=== PATIENT | female | born 1985 | race Caucasian/White ===

== ENCOUNTER 2018-03-27 05:33 | Inpatient (IN) | payer MEDICAID ==
[~2018-03-27] VITALS: Ht 168.9 cm; Wt 85.3 kg
[~2018-03-27 05:33] MED LIST: ACE3 PO; ACET-1718 PO; IBU600 PO; IBUP800T37 PO; IRO150 PO; PNV1TABL92 PO
[2018-03-27] MEDS ORDERED: FAMOTIDINE(*) 20MG/50ML PREMIX 50 ML IVPB PRN (05:34)
[2018-03-27] MEDS ORDERED: fentaNYL CITR 100 MCG/2 ML AMP IVP PRN (05:35)
[2018-03-27] MEDS ORDERED: LIDOCAINE/SOD BICARB 8.4% SYR SC PRN (05:35)
[2018-03-27] MEDS ORDERED: METOCLOPRAMIDE 10 MG/2 ML SDV IVP PRN (05:35)
[2018-03-27] MEDS ORDERED: FLUSH 10 ML SYR IVP PRN (05:35)
[2018-03-27] MEDS ORDERED: LIDOCAINE 1% LOCAL 300 MG/30ML INJ PRN ×2 (05:35→14:10)
[2018-03-27] MEDS ORDERED: cefOXitin/DEX(*) 2GM/50ML PREM 50 ML IVPB PRN (05:35)
[2018-03-27] MEDS ORDERED: TERBUTALINE SULF 1 MG/ML VIAL SUBQ PRN (05:35)
[2018-03-27] MEDS: OXYTOCIN 30 UNIT/LR 500 ML 500 ML IV PRN ×2 (06:17→07:45)
[2018-03-27] MEDS: LR(*) 1000 ML BAG 1,000 ML IV PRN ×2 (06:18→11:03)
[2018-03-27] MEDS ORDERED: CALC-515 PO (06:20)
[2018-03-27] MEDS ORDERED: ACET-1966 PO (06:20)
[2018-03-27 06:44] LABS: PLATELET COUNT, AUTOMATED 217 K/uL (150-450)
[2018-03-27 07:05] VITALS: BP 116/75; Ht 168.9 cm; Wt 85.3 kg
[2018-03-27] MEDS ORDERED: BUPIVACAINE 0.25% MPF INJ EPI PRN (07:55)
[2018-03-27] MEDS ORDERED: fentaNYL CITR 100 MCG/2 ML AMP IT PRN (07:55)
[2018-03-27] MEDS ORDERED: FENTANYL/ROPIVACAINE 100 ML BAG EPI PRN (07:55)
[2018-03-27] MEDS ORDERED: LIDOCAINE/PF 2% 200MG/10ML AMP 200 MG/10 ML AMPUL EPI PRN (07:55)
[2018-03-27] MEDS ORDERED: BUPIVACAINE 0.5% INJ 30ML VIAL EPI PRN (07:55)
[2018-03-27] MEDS ORDERED: LIDO/EPI 2% MPF 1:200,000 20ML EPI PRN (07:55)
[2018-03-27] MEDS ORDERED: EPIDURAL KEYS XX PRN (07:55)
[2018-03-27] MEDS ORDERED: NS 0.9% 20 ML SDV 20 ML ONE (11:22)
--- NOTE | 2018-03-27 12:24 | Anesthesia OB Pre-Anes Eval ---
History of Present Illness Anesthesia Start Date: Mar 27, 2018 Anesthesia Start Time: 09:42 OB Anesthesia Diagnosis: induction - elective EDC: Apr 01, 2018 : 4 Para: 3 Pain Ratin Heart Tones: 146 Result Diagram: 03/27/18 0630 Height (Inches): 66.50 Weight (Pounds): 188 BMI Calculated: 29.89 Past Medical History Medical History: no pertinent history Previous Anesthesia: epidural (epidural X 2) Attended Childbirth Classes?: Yes Hx Anesthesia Reactions: No Hx Family Anesthesia Reaction: No Current Medications: pitocin Home Meds Reported Medications Acetaminophen (TYLENOL) 325 Mg Tablet, 325 MG PO, TAB 03/27/18 Calcium Carbonate (TUMS) 200 Mg Tab.chew, 200 MG PO, TAB.CHEW 03/27/18 Pnv Cmb#95/Ferrous Fumarate/Fa ( TABLET) 1 Each Tablet, 1 EACH PO DAILY CONTINUE VITAMIN WHILE . 06/09/12 Discontinued Scripts Ibuprofen (IBUPROFEN) 800 Mg Tablet, 1 TAB PO Q8H, #30 TAB Prov:SAMUEL PARHAM MD 10/06/14 Acetaminophen With Codeine # 3 (ACETAMINOPHEN-COD #3 TABLET) 1 Each Tablet, 1-2 EACH PO Q4H Y for PAIN, #30 TAB Prov:SAMUEL PARHAM MD 10/06/14 Allergies: Coded Allergies: No Known Drug Allergies (Verified , 10/21/10) Anesthesia OB ROS Airway Class: ll GI ROS: clear liquids Last Solids Date: Mar 27, 2018 Last Solids Time: 09:00 ASA Classification: 2 EVANGELIST TYSON CRNA Mar 27, 2018 12:24
[2018-03-27] MEDS ORDERED: BENZOCAINE 20% 60 ML BTL TP PRN (12:30)
[2018-03-27] MEDS ORDERED: GLYCERIN/WITCH HAZEL LEAF 1 PK TP PRN (12:30)
[2018-03-27] MEDS ORDERED: ACETAMINOPHEN 325 MG TAB PO PRN (12:30)
[2018-03-27] MEDS ORDERED: LANOLIN OINT 7 GM TUBE TP PRN (12:30)
[2018-03-27] MEDS ORDERED: HYDROCORTISONE 2.5% CR 30GM TB PR PRN (12:30)
[2018-03-27] MEDS ORDERED: INFLUENZA VIRUS VAC 0.5 ML SYR IM ONLY ONE (12:30)
[2018-03-27] MEDS ORDERED: MAGNESIUM HYDROXIDE* 30ML UDCP PO PRN (12:30)
--- NOTE | 2018-03-27 12:34 | Procedure Note ---
Anesthetic Placement Note Anesthesia Plan: CSE Permit for Anesthesia Signed: Yes Anesthesia Technique: Patient Sitting Anesthesia Prep: Chlorhexidine Interspace: L 4-5 Local Anesthetic: 1% Lidocaine, 25 Gauge Needle Amount Local - cc's: 3 Anesthesia Needle: 17g Touhy/Schliff Anesthesia Attempts: 1 Loss of Resistance: Normal Saline Depth of FORD (cm): 4 Intrathecal Needle: 27 Gauge Pencan Cerebral Spinal Fluid: No Catheter Insertion (cm): 8 Catheter Type: Verdin - Spring Wound Epidural Dressing: Tegaderm, Tape Anesthesia Tray: Lot Number [id number]), Expiration Date (2019-04-07), Reference Number ([id number]) Anesthesia Medications: Intrathecal Dose: mcg Fentanyl (10), mg Marcaine MPF (2.5), mg Astromorph (0.4) , Time (0958) Epidural Test Dose: 1.5 Lido/Epi (1:200,000), Dose - mL (3), Time (1002), Negative Epidural Loading Dose: 0.25% Marcaine, With Fentanyl 2mcg/ml, Dose - ml (5), Time (1006), Other (90 mcg fentanyl with loading dose) Epidural Infusion: 0.2% Ropivicaine, With Fentanyl 2mcg/ml, Start Time: (1014) Epidural Pump Setting: Bolus Dose - mL (6), Lockout - Minutes (20), Maintenance Rate - mL/hr (12), Maximum per Hour - mL (30) Comment: intrathecal dose not effective. patient did not have relief from contractions and felt no difference in legs when testing sensory level with alcohol wipe. patient eventually felt some tingling in legs and contractions moved from being felt in whole belly area to lower abdomen only. EVANGELIST TYSON CRNA Mar 27, 2018 12:34
--- NOTE | 2018-03-27 12:36 | Anesthesia Progress Note ---
Progress/Maintenance Anesthesia Note Time: 10:45 Pain Intensity: 5 Pump: On Pump Rate (ML/HR): 12 Motor Level: Bending Knees-Bilateral Dilatation: 8 Position: Right, Tilt Drug Bolus: 0.25% Marcaine (5 ml) Anesthesia Treatment: patient not feeling relief from epidural. bolus dose given via epidural EVANGELIST TYSON CRNA Mar 27, 2018 12:36
--- NOTE | 2018-03-27 12:38 | Anesthesia Progress Note ---
Progress/Maintenance Anesthesia Note Time: 11:15 Pain Intensity: 6 Pump Rate (ML/HR): 12 Motor Level: Bending Knees-Bilateral Position: Right, Tilt Drug Bolus: 0.25% Marcaine Anesthesia Treatment: bolus given due to patient comfort level. EVANGELIST TYSON [employer] Mar 27, 2018 12:38
--- NOTE | 2018-03-27 12:39 | Anesthesia Progress Note ---
Progress/Maintenance Anesthesia Note Time: 11:45 Pain Intensity: 8 Pump: On Pump Rate (ML/HR): 12 Motor Level: Bending Knees-Bilateral Dilatation: 8 Position: Right, Lateral Drug Bolus: 0.25% Marcaine Anesthesia Treatment: bolus dose given EVANGELIST TYSON CRNA Mar 27, 2018 12:39
--- NOTE | 2018-03-27 12:41 | Anesthesia Progress Note ---
Progress/Maintenance Anesthesia Note Time: 11:50 Pain Intensity: 8 Pump: Off Motor Level: Bending Knees-Bilateral Dilatation: 8 Position: Right, Tilt Anesthesia Treatment: epidural removed due to no relief from boluses. EVANGELIST TYSON CRNA Mar 27, 2018 12:40
--- NOTE | 2018-03-27 12:42 | Anesthesia Progress Note ---
Progress/Maintenance Anesthesia Note Time: 11:55 Pain Intensity: 8 Pump: Off Motor Level: Bending Knees-Bilateral Dilatation: 8 Anesthesia Treatment: attempted 2nd epidural pt. C and P. no catheter placed. EVANGELIST TYSON BRAINER Mar 27, 2018 12:42
--- NOTE | 2018-03-27 12:49 | History & Physical ---
History of Present Illness Age of Patient: 32 : 4 Para or TPAL: 3 EDC per LMP: Apr 01, 2018 Estimated Gestational Age: 39.2 Chief Complaint labor induction History of Present Illness Presents for IOL at term. History of vaginal deliveries x 3 at term, rapid labors. uncomplicated. Rubella non-immune, A Pos and GBS negative. Past Medical, Surgical, Family and Obstetric Histories reviewed. Please see ACOG chart. History Allergies: Coded Allergies: No Known Drug Allergies (Verified , 10/21/10) Social History: , lives with and 2 toddlers. No noxious habits at present. Med Rec Home Meds Reported Medications Acetaminophen (TYLENOL) 325 Mg Tablet, 325 MG PO, TAB 03/27/18 Calcium Carbonate (TUMS) 200 Mg Tab.chew, 200 MG PO, TAB.CHEW 03/27/18 Pnv Cmb#95/Ferrous Fumarate/Fa ( TABLET) 1 Each Tablet, 1 EACH PO DAILY CONTINUE VITAMIN WHILE . 06/09/12 Discontinued Scripts Ibuprofen (IBUPROFEN) 800 Mg Tablet, 1 TAB PO Q8H, #30 TAB Prov:SAMUEL PARHAM MD 10/06/14 Acetaminophen With Codeine # 3 (ACETAMINOPHEN-COD #3 TABLET) 1 Each Tablet, 1-2 EACH PO Q4H Y for PAIN, #30 TAB Prov:SAMUEL PARHAM MD 10/06/14 Review of Systems All Systems Reviewed/Normal: Yes, Except as Noted Exam General Exam Vital Signs Vital Signs Date Time Temp Pulse Resp B/P (MAP) Pulse Ox O2 Delivery O2 Flow Rate FiO2 03/27/18 07:05 99.0 90 18 116/75 (89) 97 Room Air General Apperance: Alert/Awake/No Acute Distress Neuro: No Gross deficits Eyes: Normal Extraocular Movement & Vison Cardiovascular: Regular Rate and Rhythm Respiratory: No Respiratory Distress, Clear to Auscultation Abdomen: Soft, Non-Tender, Non-Distended, Gravid - Non-Tender Extremities: No Cyanosis,Clubbing or Edema Integumentary: Skin Intact without Lesions or Rash Psychological: Alert & Oriented X3, Appropriate Mood & Affect Cervical Dialation: 4 Cervical Effacement (%): 75 Cervical Consistency: Soft Cervical Position: Anterior Station: -1 Presentation: Vertex Fetus Heart Tone Variabilty: Moderate FHT Accelerations: 15X15 FHT Category: I Medical Decision Making Data Points Result Diagram: 03/27/18 0630 VTE Prophylasis: Adult Deep Vein Thrombosis/Pulmonary: No Pharmacological Contraindicati: Pt at Low Risk for VTE Mechanical Contraindications: Pt at Low Risk for VTE Assessment and Plan TOOL PUSHER Plan: Routine Labor/Induct Care Problems: (1) Normal Status: Acute Problem Qualifiers (1) Normal : Trimester: third trimester Qualified Codes: Z34.93 - Encounter for supervision of normal , unspecified, third trimester VICKEY OBREGON MD Mar 27, 2018 12:49
--- NOTE | 2018-03-27 12:54 | OB Delivery Note ---
Delivery Note Vaginal Delivery Type: Spont. Vaginal Delivery Delivery Date: Mar 27, 2018 Delivery Time: 12:06 Estimated Gestational Age(wks): 39.2 Delivery Anesthesia: Epidural Sex: Female [place] Apgars: 1 Minute (9), 5 Minute (9) Repair Needed: Laceration, 2nd Degree Estimated Blood Loss: 300 Delivery Complications: Laceration Notes: Presented for induction at 3cm and having contractions. Contractions augmented with Pitocin to 5 cm by 1043. AROM at 1043, clear. Epidural attempted but failed twice by [facility] [employer] employee with very little epidural experience. Delivered over second degree laceration. Placenta delivered intact and spontaneous. Repair with 2-0 Chromic without complication. Traffic Line Painter in Attendence: No Copies to: VICKEY OBREGON MD, TRAVIS MD Mar 27, 2018 12:54
[2018-03-27] MEDS: IBUPROFEN 800 MG TAB PO SCH ×2 (13:18→23:22)
[2018-03-27] MEDS ORDERED: LIDOCAINE 1% LOCAL 300 MG/30ML 30 ML ONE (13:21)
[2018-03-27] MEDS: APAP/HYDROCODONE 325/5 TAB PO PRN ×3 (13:37→20:05)
[2018-03-27 14:30] VITALS: BP 105/62
[2018-03-27 19:15] VITALS: BP 114/65
[2018-03-27 23:22] VITALS: BP 107/59
[2018-03-27] MEDS: DOCUSATE CALCIUM 240 MG CAP PO SCH (23:22)
[2018-03-28] MEDS: APAP/HYDROCODONE 325/5 TAB PO PRN ×3 (02:24→13:05)
[2018-03-28 04:58] VITALS: BP 109/55
[2018-03-28] MEDS: IBUPROFEN 800 MG TAB PO SCH ×2 (06:44→14:20)
[2018-03-28] MEDS ORDERED: DIPHTH/TETANUS/ACEL. PERTUSSIS IM ONLY ONE (09:00)
[2018-03-28] MEDS: DOCUSATE CALCIUM 240 MG CAP PO SCH (09:00)
[2018-03-28] MEDS ORDERED: MEASLES,MUMP,RUBELLA VAC 0.5ML SUBQ ONE (09:00)
[2018-03-28 09:11] VITALS: BP 104/51
--- NOTE | 2018-03-28 12:40 | OB/GYN Progress Note ---
OB Subjective Progress Notes Subjective Doing well. Pain controlled and ambulating and voiding well. No problems. GI: NEG Nausea : Voiding Well Pain: Mild OB Objective Physical Exam Vital Signs Date Time Temp Pulse Resp B/P (MAP) Pulse Ox O2 Delivery O2 Flow Rate FiO2 03/28/18 09:11 98.0 93 16 104/51 (68) Room Air 03/27/18 23:22 94 Intake and Output 03/29/18 07:00 Intake Total 240 ml Balance 240 ml Intake Oral 240 ml General Appearance: Alert/Awake/No Acute Distress Neurological: No Gross deficits Eyes: Normal Extraocular Movement & Vison Cardiovascular: Normal Rhythm & Peripheral Pulses, Regular Rate and Rhythm Respiratory: No Respiratory Distress, Clear to Auscultation Abdomen: Soft, Non-Tender, Non-Distended, Fundus Firm, Non-Tender Extremities: No Cyanosis,Clubbing or Edema Integumentary: Skin Intact without Lesions or Rash Psychological: Alert & Oriented X3, Appropriate Mood & Affect Result Diagram: 03/28/18 0624 Assessment and Plan BENEFITS COORDINATOR Plan: Discharge Home Today Problems: (1) Normal Status: Acute (2) care and examination immediately after delivery Assessment & Plan: Reviewed precautions and discharge instructions. Call if problems. F/U a t 6 weeks. Problem Qualifiers (1) Normal : Trimester: third trimester Qualified Codes: Z34.93 - Encounter for supervision of normal , unspecified, third trimester VICKEY OBREGON MD Mar 28, 2018 12:40
[2018-03-28] MEDS ORDERED: IBUP800T37 PO (12:41)
[2018-03-28] MEDS ORDERED: LOR5/325 PO (12:41)
--- NOTE | 2018-03-28 12:42 | OB/GYN Discharge Summary ---
Discharge Summary Reason for Hosp/Final Diag: (1) Normal Status: Acute (2) care and examination immediately after delivery Hospital Course & Plan: Reviewed precautions and discharge instructions. Call if problems. F/U a t 6 weeks. Lates Vital Signs Vital Signs Date Time Temp Pulse Resp B/P (MAP) Pulse Ox O2 Delivery O2 Flow Rate FiO2 03/28/18 09:11 98.0 93 16 104/51 (68) Room Air 03/27/18 23:22 94 Weight (Pounds): 188 Result Diagram: 03/28/18 0624 Condition: Improved Discharge: Home, Self Longterm Meds Active Scripts Ibuprofen (IBUPROFEN) 800 Mg Tablet, 800 MG PO Q8H Y for PAIN, #30 TAB 0 Refills Prov:ARNULFO RIVERO MD 03/28/18 Hydrocodone Bit/Acetaminophen (HYDROCODON-ACETAMINOPHEN 5-325) 1 Each Tablet, 1- 2 EACH PO Q4H Y for PAIN, #14 TAB 0 Refills Prov:ARNULFO RIVERO MD 03/28/18 Reported Medications Acetaminophen (TYLENOL) 325 Mg Tablet, 325 MG PO, TAB 03/27/18 Calcium Carbonate (TUMS) 200 Mg Tab.chew, 200 MG PO, TAB.CHEW 03/27/18 Pnv Cmb#95/Ferrous Fumarate/Fa ( TABLET) 1 Each Tablet, 1 EACH PO DAILY CONTINUE VITAMIN WHILE . 06/09/12 Discontinued Scripts Ibuprofen (IBUPROFEN) 800 Mg Tablet, 1 TAB PO Q8H, #30 TAB Prov:SAMUEL PARHAM MD 10/06/14 Acetaminophen With Codeine # 3 (ACETAMINOPHEN-COD #3 TABLET) 1 Each Tablet, 1-2 EACH PO Q4H Y for PAIN, #30 TAB Prov:SAMUEL PARHAM MD 10/06/14 Follow up Referrals: ROENTGENOLOGY TEACHER - In 6 Weeks @ [facility] with Arnulfo iRvero Md Follow up with: Dr. Rivero [phone] Follow up in: 6 wks PP or PO Discharge Diet: As Tolerates Discharge Activity: As Tolerates, No Heavy Lifting x 6 wks, No Heavy Lifting > 10lb, Pelvic Rest Copies to: ARNULFO RIVERO MD Problem Qualifiers (1) Normal : Trimester: third trimester Qualified Codes: Z34.93 - Encounter for supervision of normal , unspecified, third trimester ARNULFO RIVERO MD Mar 28, 2018 12:42
== END 2018-03-28 16:45 | disposition home or self-care (01) | DRG 775 ==
LOC: OB 05:33
PROVIDERS: ADMIT Obstetrics & Gynecology; ATTEND Obstetrics & Gynecology
PROC: 10E0XZZ Delivery of Products of Conception, External Approach (ICD-10-PCS; principal; 2018-03-27)
PROC: 0KQM0ZZ Repair Perineum Muscle, Open Approach (ICD-10-PCS; 2018-03-27)
PROC: 10907ZC Drainage of Amniotic Fluid, Therapeutic from Products of Conception, Via Natural or Artificial Opening (ICD-10-PCS; 2018-03-27)
DX: O70.1 Second degree perineal laceration during delivery (principal); Z37.0 Single live birth; Z3A.39 39 weeks gestation of pregnancy; Z23 Encounter for immunization
CPT/HCPCS: 36415; 36416; 82948; 85025; 85027; 86850; 86900; 86901; 88307; 90707; 96372; J2590; J3010; J7120; S0020